=== PATIENT | male | born 1985 | race Hispanic/Latino ===

== ENCOUNTER 2017-09-25 17:27 | Emergency (ER) | payer SELFPAY ==
[~2017-09-25] VITALS: Ht 172.7 cm; Wt 98.0 kg
[~2017-09-25 17:27] MED LIST: ALBUTEROL0.09 MG/A1 INH; GUAIFENESIN-COD10 ML PO; PERCOCET 5-3251 EACH PO; PREDNISONE 20MG20 MG PO; ROBITUSSIN W/CO10 ML PO; ZITHROMAX250 M2 PO
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
[2017-09-25 20:48] VITALS: BP 133/72
[2017-09-25] MEDS ORDERED: ORPHENADRINE C100 MG PO (21:31)
[2017-09-25] MEDS ORDERED: DICLOFENAC SODI75 M2 PO (21:31)
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
== END 2017-09-25 21:46 ==
LOC: ERH 17:27
DX: S16.1XXA Strain of muscle, fascia and tendon at neck level, initial encounter (principal); S39.012A Strain of muscle, fascia and tendon of lower back, initial encounter; V49.40XA Driver injured in collision with unspecified motor vehicles in traffic accident, initial encounter; Y92.9 Unspecified place or not applicable